=== PATIENT | male | born 1990 | race Caucasian/White ===

== ENCOUNTER → 2017-09-11 | Outpatient (CLI) | payer OTHER ==
[2017-09-11 10:35] LABS: BASO % 0.7 % (0.0-1.0); EOS # 0.2 10^3/uL (0.0-0.50); EOS % 2.8 % (0.0-3.0); HEMATOCRIT 39.9 % (42.0-52.0); HEMOGLOBIN 14.1 g/dl (13.5-17.5); IMMATURE GRANULOCYTE % 0.2 % (0-3.0); LYMPH # 2.9 10^3/uL (1.5-6.5); LYMPH % 48.8 % (24.0-44.0); MEAN CORPUSCULAR HEMOGLOBIN 30.8 pg (27.0-33.0); MEAN CORPUSCULAR HGB CONC 35.3 g/dl (32.0-36.5); MEAN CORPUSCULAR VOLUME 87.1 fl (80.0-96.0); MONO # 0.2 10^3/uL (0.0-0.8); MONO % 3.8 % (0.0-5.0); NEUTROPHILS # 2.6 10^3/uL (1.8-7.7); NEUTROPHILS % 43.7 % (36.0-66.0); PLATELET COUNT, AUTOMATED 245 10^3/uL (150-450); RED BLOOD COUNT 4.58 10^6/uL (4.30-6.10); RED CELL DISTRIBUTION WIDTH 11.9 % (11.5-14.5)
[2017-09-11 11:15] LABS: ALBUMIN 4.2 GM/DL (3.2-5.2); ALBUMIN/GLOBULIN RATIO 1.45 (1.00-1.93); ALKALINE PHOSPHATASE 75 U/L (45-117); ALT/SGPT 24 U/L (12-78); ANION GAP 6 MEQ/L (8-16); AST/SGOT 18 U/L (7-37); BILIRUBIN,TOTAL 0.5 MG/DL (0.2-1.0); BLOOD UREA NITROGEN 15 MG/DL (7-18); CALCIUM LEVEL 8.9 MG/DL (8.5-10.1); CARBON DIOXIDE LEVEL 34 MEQ/L (21-32); CHLORIDE LEVEL 102 MEQ/L (98-107); CREATININE FOR GFR 1.12 MG/DL (0.70-1.30); GLOMERULAR FILTRATION RATE > 60.0 (>60); GLUCOSE, FASTING 117 MG/DL (70-100); POTASSIUM SERUM 4.4 MEQ/L (3.5-5.1); SODIUM LEVEL 142 MEQ/L (136-145); TOTAL PROTEIN 7.1 GM/DL (6.4-8.2)
== END ==
LOC: M LAB 10:13
DX: F11.20 Opioid dependence, uncomplicated (principal); R94.31 Abnormal electrocardiogram [ECG] [EKG]
CPT/HCPCS: 93005

== ENCOUNTER → 2020-02-08 | Outpatient (CLI) | payer OTHER ==
--- NOTE | 2020-02-08 14:47 | ECGEPIP ---
[facility] Test Date: 2020-02-08 Pat Name: MO CADET Department: Room: - Gender: Male Calciminer: TRISTAN : 1990 Requested By: Renata Knight Order Number: [id number] Reading MD: No Briceno Measurements Intervals [place] Rate: 50 P: 26 WV: 153 QRS: 74 QRSD: 106 T: 59 QT: 394 QTc: 363 Interpretive Statements SINUS BRADYCARDIA WITH SINUS ARRHYTHMIA Rate SLOWER NOW WITH PROBABLE EARLY REPOLAR CHANGES Electronically Signed on 02-08-2020 14:47:27 EST by No Briceno
[2020-02-08 15:05] LABS: BASO % 0.5 % (0.0-1.0); EOS # 0.1 10^3/uL (0.0-0.5); EOS % 1.1 % (0.0-3.0); HEMATOCRIT 42.1 % (42.0-52.0); HEMOGLOBIN 14.6 g/dl (13.5-17.5); LYMPH # 2.9 10^3/uL (1.5-5.0); LYMPH % 39.5 % (24.0-44.0); MEAN CORPUSCULAR HEMOGLOBIN 30.6 pg (27.0-33.0); MEAN CORPUSCULAR HGB CONC 34.7 g/dl (32.0-36.5); MEAN CORPUSCULAR VOLUME 88.3 fl (80.0-96.0); MONO # 0.3 10^3/uL (0.0-0.8); MONO % 4.1 % (0.0-5.0); NEUTROPHILS % 54.5 % (36.0-66.0); PLATELET COUNT, AUTOMATED 315 10^3/uL (150-450); RED BLOOD COUNT 4.77 10^6/uL (4.30-6.10); WHITE BLOOD COUNT 7.3 10^3/uL (4.0-10.0)
[2020-02-08 16:51] LABS: ALBUMIN 4.4 GM/DL (3.2-5.2); ALT/SGPT 23 U/L (12-78); BILIRUBIN,TOTAL 0.4 MG/DL (0.2-1.0); BLOOD UREA NITROGEN 8 MG/DL (7-18); CARBON DIOXIDE LEVEL 32 MEQ/L (21-32); CHLORIDE LEVEL 102 MEQ/L (98-107); CREATININE FOR GFR 0.88 MG/DL (0.70-1.30); GLOMERULAR FILTRATION RATE > 60.0 (>60); GLUCOSE, FASTING 91 MG/DL (70-100); POTASSIUM SERUM 3.9 MEQ/L (3.5-5.1); SODIUM LEVEL 138 MEQ/L (136-145); TOTAL PROTEIN 7.2 GM/DL (6.4-8.2)
== END ==
LOC: M LAB 13:44
PROVIDERS: ATTEND Nurse Practitioner Family
DX: F11.20 Opioid dependence, uncomplicated (principal); R94.31 Abnormal electrocardiogram [ECG] [EKG]

== ENCOUNTER 2021-12-29 18:07 | Emergency (ER) | payer OTHER ==
[~2021-12-29] VITALS: Ht 177.8 cm; Wt 93.3 kg
[2021-12-29 18:08] VITALS: BP 150/90
== END 2021-12-29 20:26 | disposition left against medical advice (07) ==
LOC: M ED 18:07
DX: Z53.21 Procedure and treatment not carried out due to patient leaving prior to being seen by health care provider (principal)

== ENCOUNTER 2025-01-22 11:17 | Emergency (ER) | payer MEDICAID, OTHER ==
[~2025-01-22] VITALS: Ht 172.7 cm; Wt 77.2 kg
[2025-01-22 12:04] LABS: BASO # 0.1 10^3/uL (0.0-0.2); BASO % 0.7 % (0.0-1.0); EOS # 0.0 10^3/uL (0.0-0.5); EOS % 0.1 % (0.0-3.0); LYMPH # 1.5 10^3/uL (1.5-5.0); LYMPH % 19.2 % (24.0-44.0); MONO # 0.4 10^3/uL (0.0-0.8); MONO % 5.5 % (2.0-8.0); NEUTROPHILS # 5.6 10^3/uL (1.5-8.5); NEUTROPHILS % 74.1 % (36.0-66.0); PLATELET COUNT, AUTOMATED 290 10^3/uL (150-450)
[2025-01-22 12:32] LABS: ALT/SGPT 66 U/L (7.0-40); AST/SGOT 66 U/L (<34); CALCIUM LEVEL 8.7 MG/DL (8.5-10.1); CARBON DIOXIDE LEVEL 29 MMOL/L (20-31); CHLORIDE LEVEL 97 MMOL/L (98-107); CREATININE FOR GFR 0.70 MG/DL (0.70-1.30); GLOMERULAR FILTRATION RATE > 90.0 (>60); MAGNESIUM LEVEL 1.7 MG/DL (1.8-2.4); PHOSPHORUS LEVEL 2.8 MG/DL (2.5-4.9); POTASSIUM SERUM 3.8 MMOL/L (3.5-5.1); SODIUM LEVEL 137 MMOL/L (136-145)
[2025-01-22 12:57] LABS: ETHYL ALCOHOL (ETHANOL) 0.045 % (0.000-0.010)
[2025-01-22] MEDS ORDERED: HOME MED LIST COMPLETE! XX SCH (13:10)
[2025-01-22] MEDS: OXAZEPAM 15MG CAP PO ONE (14:26)
[2025-01-22] MEDS: NS (Normal Saline) 0.9% 1,000 ML IV ONE (14:26)
[2025-01-22] MEDS: ONDANSETRON 4MG/2ML VIAL IV ONE (14:26)
[2025-01-22] MEDS: THIAMINE 100 MG TAB PO ONE (14:26)
[2025-01-22] MEDS: MAGNESIUM OXIDE 400 MG TAB PO ONE (14:44)
[2025-01-22] MEDS ORDERED: OXAZ30CA2 PO (16:19)
[2025-01-22] MEDS ORDERED: ONDA-282 PO (16:24)
[2025-01-22 16:30] VITALS: BP 131/82; TEMP 98.9; O2SAT 99
== END 2025-01-22 16:34 | disposition home or self-care (01) ==
LOC: M ED 11:17
DX: F10.130 Alcohol abuse with withdrawal, uncomplicated (principal); F19.10 Other psychoactive substance abuse, uncomplicated; F17.200 Nicotine dependence, unspecified, uncomplicated; Z79.899 Other long term (current) drug therapy
CPT/HCPCS: 80048; 80076; 82077; 83735; 84100; 85025; 93041; 94760; 96361; 96374; 99285; J2405